=== PATIENT | female | born 1980 | race Caucasian/White ===

== ENCOUNTER → 2019-06-09 | Outpatient (CLI) | payer OTHER ==
--- NOTE | 2019-06-09 14:03 | WOMENS IMAGING REPORT ---
EXAM DESCRIPTION: U/S BREAST UNILAT LIMITED COMPLETE DATE/TIME: 06/09/2019 1:41 pm REASON FOR STUDY: LEFT BREAST LUMP N63.20 UNSPECIFIED LUMP IN THE LEFT BREAST, UNSPECIFIED QUAD FINDINGS: Please see combined report for performance of procedure and radiologic supervision and int erpretation. IMPRESSION: Please see combined report for performance of procedure and radiologic supervision and i nterpretation. Reading location - IP/workstation name: [email or web address]
== END ==
LOC: WI 12:50
PROVIDERS: ATTEND Physician Assistant
DX: N63.20 Unspecified lump in the left breast, unspecified quadrant (principal)
CPT/HCPCS: 76642; 77066

== ENCOUNTER 2019-07-14 12:27 | Day surgery (SDC) | payer OTHER ==
[2019-07-12 12:02] LABS: HEMOGLOBIN 13.6 g/dL (12.0-15.5); MEAN CORPUSCULAR HEMOGLOBIN 28.8 pg (27.0-33.4); MEAN CORPUSCULAR HGB CONC 33.1 g/dL (32.0-36.0); MEAN CORPUSCULAR VOLUME 87 fl (80-97); PLATELET COUNT 262 10^3/uL (150-450); RED BLOOD COUNT 4.71 10^6/uL (3.72-5.28); RED CELL DISTRIBUTION WIDTH 13.4 % (11.5-14.0); WHITE BLOOD COUNT 8.3 10^3/uL (4.0-10.5)
[~2019-07-14 12:27] MED LIST: CEFAZOLIN 1 GM/D5W RTU 1 GM/50 ML RTUPB IV ONE; CEFAZOLIN 1 GM/D5W RTU 1 GM/50 ML RTUPB IV PRN; LACTATED RINGERS 1000 ML IV PRN; LIDOCAINE 0.5% INJ-PF (5 MG/ML) 50 ML SDV SUBCUT PRN
[2019-07-14] MEDS ORDERED: MICROFIBRILLAR COLLAGEN 1 GM PACK ONE (16:59)
[2019-07-14] MEDS ORDERED: LIDOCAINE 1%/EPINEPHRINE INJ 20 ML VIAL ONE (16:59)
[2019-07-14] MEDS ORDERED: MIDAZOLAM 2 MG/2 ML INJ ONE (17:05)
[2019-07-14] MEDS ORDERED: FENTANYL CITRATE INJ/PF 100 MCG/2 ML AMPUL ONE (17:05)
[2019-07-14] MEDS ORDERED: ONDANSETRON HCL INJ/PF 4 MG/2 ML SDV ONE ×2 (17:06→18:49)
[2019-07-14] MEDS ORDERED: PROPOFOL INJ 200 MG/20 ML VIAL IV ONE (17:06)
[2019-07-14] MEDS ORDERED: MORPHINE SULFATE 10 MG/ML INJ IV PRN (17:59)
[2019-07-14] MEDS ORDERED: MEPERIDINE HCL/PF INJ 25 MG/1 ML DISP.SYRIN IV PRN (17:59)
[2019-07-14] MEDS ORDERED: FENTANYL CITRATE INJ/PF 100 MCG/2 ML AMPUL IV PRN ×3 (17:59)
[2019-07-14] MEDS ORDERED: PROMETHAZINE HCL INJ 25 MG/1 ML VIAL IV PRN (17:59)
[2019-07-14] MEDS ORDERED: DIPHENHYDRAMINE HCL 50 MG/ML VIAL IV PRN (17:59)
--- NOTE | 2019-07-14 18:15 | Discharge Summary ---
Discharge Summary (SDC) - Discharge Final Diagnosis: Mass, left breast, consistent with fibroadenoma Date of Surgery: 07/14/19 Discharge Date: 07/14/19 Condition: Good Treatment or Instructions: Remove 4 x 4's in 48 hours; may shower; prescription on chart; follow-up with Dr. Copeland at [facility] in 2 weeks. Referrals: JACQUELINE JOHN PA [Primary Care Provider] - Discharge Diet: As Tolerated Discharge Activity: Activity As Tolerated Home Care Assistance: None Needed Report the Following to Your Physician Immediately: Shortness of Breath, Increase in Pain, Fever over 101 Degrees
--- NOTE | 2019-07-14 18:19 | Operative Report ---
Operative Report DATE OF SURGERY: 07/14/19 PREOPERATIVE DIAGNOSIS: Left breast mass consistent with fibroadenoma POSTOPERATIVE DIAGNOSIS: Same OPERATION: 1. Ultrasound directed excisional lumpectomy left breast mass. 2. Interpretation of intraoperative specimen radiograph SURGEON: TARAH COPELAND ANESTHESIA: LMAC TISSUE REMOVED OR ALTERED: Left breast mass with a suture and clip COMPLICATIONS: None ESTIMATED BLOOD LOSS: Scant INTRAOPERATIVE FINDINGS: See below PROCEDURE: The patient was seen in the holding area the left breast was marked by Dr. Copeland. She was then taken the main operating where LMAC anesthesia was induced the left breast was isolated, prepped and draped sterile fashion. Surgical plan and surgical timeout conducted. The patient did not tolerate LMAC so an LMA was inserted. Focused ultrasound left breast confirmed a left breast mass approximately 2 cm in diameter with clip marker previously placed at an outside institution. The mass was at the 3:30 position left breast approximately 7 cm from the nipple. Markings were made on the skin for a left breast lumpectomy. Skin was marked, then anesthetized with 1% plain lidocaine. A 2 and half to 3 cm incision was made with a #15 blade. The underlying subcutaneous tissue was divided with electrocautery. Using ultrasound real-time as a guide, a lumpectomy was performed approximately 5 x 5.4 cm in diameter. This encompassed the target lesion, including the clip marker. The mass was removed from the left breast with the assistance of a 2-0 silk suture. The specimen was brought out ex vivo, ultrasounded in a bucket of water and found to contain the mass and the clip marker. We now placed the specimen on a Santy dish and performed specimen radiography in the operating room. This confirmed retention of the mass and the clip marker. The specimen was sent to pathology for permanent analysis. We checked the wound for bleeding and there was none sponge and needle counts were correct. Wound closed with 0 Vicryl suture benzoin and Steri-Strips. Patient tolerated the procedure well. She was taken to the recovery room in stable condition.
[2019-07-14] MEDS ORDERED: ONDANSETRON HCL INJ/PF 4 MG/2 ML SDV IV ONE (19:15)
[2019-07-14 20:08] VITALS: BP 140/78
--- NOTE | 2019-07-17 13:33 | RADIOLOGY REPORT (SQ) ---
EXAM DESCRIPTION: BREAST SPECIMEN COMPLETED DATE/TIME: 07/14/2019 5:19 pm REASON FOR STUDY: BREAST SPECIMEN LEFT BREAST N63.20 UNSPECIFIED LUMP IN THE LEFT BREAST, UNSPECIFI ED QUAD COMPARISON: None. TECHNIQUE: Specimen radiograph from breast procedure performed in the operating room. LIMITATIONS: None. FINDINGS: Specimen radiograph from breast procedure performed in the operating room. The biopsy ma rker and mass are located within the specimen. Please see procedure note for details and final pathology. IMPRESSION: Specimen radiograph. TECHNICAL DOCUMENTATION: JOB ID: [id number] Reading location - IP/workstation name: [id number]
== END 2019-07-14 20:15 | disposition home or self-care (01) ==
LOC: OROUT 12:27
PROVIDERS: ATTEND Surgery
DX: D24.2 Benign neoplasm of left breast (principal); N62 Hypertrophy of breast; N60.12 Diffuse cystic mastopathy of left breast; Z87.891 Personal history of nicotine dependence
CPT/HCPCS: 36415; 85027; 81025; 88305 ×2; 88342; 00400; 76098; 19301; J2250; J0690; J3010; J3490; J2405; J2704; 400

== ENCOUNTER → 2020-06-26 | Outpatient (CLI) | payer OTHER ==
--- NOTE | 2020-06-26 09:44 | WOMENS IMAGING REPORT ---
EXAM DESCRIPTION: BILAT SCREENING MAMMO W/CAD IMAGES COMPLETED DATE/TIME: 06/26/2020 9:13 am REASON FOR STUDY: Z12.31 ENCNTR SCREEN MAMMOGRAM FOR MALIGNANT NEOPLASM OF [id number] ENCNTR SCRE EN MAMMOGRAM FOR MALIGNANT NEOPLASM OF [place] COMPARISON: 2019. EXAM PARAMETERS: Standard craniocaudal and mediolateral oblique views of each breast recorded using digital acquisition. Read with the assistance of CAD. .[facility] - [employer] Version 9.2 LIMITATIONS: None. FINDINGS: RIGHT BREAST MASSES: No suspicious masses. CALCIFICATIONS: No new or suspicious calcifications. ARCHITECTURAL DISTORTION: None. ASYMMETRY: Focal asymmetry posterior depth MLO view. This lies 7 cm from the nipple. OTHER: No other significant findings. LEFT BREAST MASSES: No suspicious masses. CALCIFICATIONS: No new or suspicious calcifications. ARCHITECTURAL DISTORTION: None. ASYMMETRY: None noted. OTHER: No other significant findings. IMPRESSION: 1. Focal asymmetry right breast one view only. 0 Incomplete: Needs Additional Imaging Evaluation and/or prior Mammograms for Comparison. BREAST DENSITY: c. The breasts are heterogeneously dense, which may obscure small masses. BIRAD: ASSESSMENT: 0 Incomplete: Needs Additional Imaging Evaluation and/or prior Mammograms for C omparison. RECOMMENDATION: RECOMMENDED FOLLOW-UP: Spot compression tomosynthesis images right breast. Potenti al ultrasound. ADDITIONAL RECOMMENDATION- No additional recommendations. The patient will be contacted for additional imaging. COMMENT: The patient has been notified of the results by letter per SA requirements. Additional no tification policies are in place for contacting patient with suspicious or incomplete findings. Quality ID #225: The [employer] recommends an annual screening mammogram for women aged 40 years or over. This facility utilizes a reminder system to ensure that all patients receive reminder letters, and/or direct phone calls for appointments. This includes reminders for routine scr eening mammograms, diagnostic mammograms, or other Breast Imaging Interventions when appropriate. Th is patient will be placed in the appropriate reminder system. TECHNICAL DOCUMENTATION: FINDING NUMBER: (1) ASSESSMENT: (1) JOB ID: [id number] 2010 [employer]- All Rights Reserved Reading location - IP/workstation name: [email or web address]
== END ==
LOC: WI 08:55
PROVIDERS: ATTEND Physician Assistant
DX: Z12.31 Encounter for screening mammogram for malignant neoplasm of breast (principal)
CPT/HCPCS: 77067

== ENCOUNTER → 2020-07-05 | Outpatient (CLI) | payer OTHER ==
--- NOTE | 2020-07-05 11:15 | WOMENS IMAGING REPORT ---
EXAM DESCRIPTION: RIGHT DIAGNOSTIC MAMMO W/CAD IMAGES COMPLETED DATE/TIME: 07/05/2020 10:58 am REASON FOR STUDY: R92.8 OTHER ABNORMAL AND INCONCLUSIVE FINDINGS ON DIAGNOSTIC IMAGING OF [place] R92.8 OTH ABN AND INCONCLUSIVE FINDINGS ON DX IMAGING OF [place] COMPARISON: 06/26/2020, 06/09/2019 EXAM PARAMETERS: Standard craniocaudal and mediolateral oblique images of the breast recorded with d igital acquisition. Read with the assistance of CAD. .[facility] - [employer] Technician Version 9.2 LIMITATIONS: None. FINDINGS: BREAST LATERALITY: right MASSES: No suspicious masses. CALCIFICATIONS: No new or suspicious calcifications. ARCHITECTURAL DISTORTION: None. ASYMMETRY: An asymmetric density demonstrated on screening mammography disperses with spot compressio n. OTHER: No other significant findings. IMPRESSION: No evidence of malignancy on today's examination. BREAST DENSITY: b. There are scattered areas of fibroglandular density. BIRAD: ASSESSMENT: 1 Negative. RECOMMENDATION: RECOMMENDED FOLLOW UP: Birads 1 or 2: The patient should resume routine screening . SPECIFIC INTERVENTION/IMAGING/CONSULTATION RECOMMENDED:No additional intervention/ imaging/consultati on needed at this time. COMMUNICATION:The negative/benign results were communicated to the patient. COMMENT: The patient has been notified of the results by letter per SA requirements. Additional no tification policies are in place for contacting patient with suspicious or incomplete findings. Quality ID #225: The [employer] recommends an annual screening mammogram for women aged 40 years or over. This facility utilizes a reminder system to ensure that all patients receive reminder letters, and/or direct phone calls for appointments. This includes reminders for routine scr eening mammograms, diagnostic mammograms, or other Breast Imaging Interventions when appropriate. Th is patient will be placed in the appropriate reminder system. TECHNICAL DOCUMENTATION: FINDING NUMBER: (1) ASSESSMENT: (1) JOB ID: [id number] 2010 [employer]- All Rights Reserved Reading location - IP/workstation name: [email or web address]
== END ==
LOC: WI 10:18
PROVIDERS: ATTEND Physician Assistant
DX: R92.8 Other abnormal and inconclusive findings on diagnostic imaging of breast (principal)
CPT/HCPCS: 77065